=== PATIENT | male | born 2000 | race Caucasian/White ===

== ENCOUNTER 2021-02-11 22:51 | Emergency (ER) | payer SELFPAY ==
[2021-02-11 23:01] VITALS: BP 132/78; PULSE 77; RESP 16; TEMP 37.2; O2SAT 98; BMI 29.2
--- NOTE | 2021-02-11 23:50 | W.ED.SKABFB ---
HPI - Skin/Abscess/Foreign Bdy General: Chief complaint: Skin/Abscess/Foreign Body Stated complaint: LLQ ABD PAIN/SWELLING Time Seen by Provider: 02/11/21 23:45 History of Present Illness: HPI narrative: 20-year-old male comes in with concerns for a wound to the left abdominal area. Patient appears well. Patient appears no acute distress. Patient reports that the area is been there about 4 days but today he noticed that it seemed more swollen and he cut it with a knife and got some fluid out. Patient reports the swelling has improved but came in for evaluation taking it may be a hernia. Review of Systems General: Reports: 10 or more systems reviewed and unremarkable except in HPI and below Skin/Breast: Reports: changing lesions and other Physical Exam Const: COMMON NORMALS: no acute distress and patient oriented x3 GENERAL APPEARANCE: cooperative HENMT: COMMON NORMALS: normocephalic, TM's normal bilaterally and Normal external nose present HEAD & SCALP: normal to inspection and normocephalic NOSE: Normal external nose present TYMPANIC MEMBRANE: TM's normal bilaterally MOUTH: Normal oral and palatal mucosa present THROAT: posterior oropharynx normal Eye: GENERAL EYE: appearance normal, both eyes and all related structures Neck/C-Spine: COMMON NORMALS: full ROM Lymph: LYMPHATIC: no lymphadenopathy noted Chest: COMMONS NORMALS: normal inspection of the chest Resp: COMMON NORMALS: normal respiratory effort EFFORT & INSPECTION: Yes able to speak in complete sentences Cardio: COMMON NORMALS: regular rate and regular rhythm RATE: regular rate RHYTHM: regular rhythm GI: COMMON NORMALS: non-tender : COMMON NORMALS: Yes no CVA tenderness BLADDER/KIDNEY EXAM: Yes no CVA tenderness Back/Pelvis: COMMON NORMALS: no CVA tenderness and thoracic and lumbar spine normal to inspection Extremity: COMMON NORMALS: normal to inspection Neuro: COMMON NORMALS: patient oriented x3 and moves all extremities Psych: COMMON NORMALS: mental status grossly normal and cooperative Skin: NARRATIVE SKIN EXAM: Left lower abdominal wall crusted lesion with some mild ecchymosis and 4 cm of redness. Course Vital Signs: Vital signs: Vital Signs Temperature 99 F 02/11/21 23:01 Pulse Rate 77 02/11/21 23:01 Respiratory Rate 16 02/11/21 23:01 Blood Pressure 132/78 02/11/21 23:01 Pulse Oximetry 98 02/11/21 23:01 MDM - Skin/Abscess/Foreign Bdy MDM Narrative: Medical decision making narrative: Patient comes in for a wound to the left abdominal wall. On exam patient appears well. Patient appears no acute distress. Patient has an 4 cm area of redness with a centralized 1 cm crusted lesion with surrounding ecchymosis. Differential diagnosis includes infected insect bite, abscess, MRSA. Patient be started on doxycycline to cover for infected insect bite. Patient does come from [place] and this may be secondary to a tick bite so puts him at high risk for Lyme's and doxy will cover that. Doxycycline should also cover MRSA. I reviewed this with patient with recommendations for follow-up or return to the ER. Patient reported understanding. Discharge Plan Discharge Patient Disposition: Home Clinical Impression: Infected insect bite of abdomen Qualifiers: Encounter type: initial encounter Qualified Code(s): S30.861A - Insect bite (nonvenomous) of abdominal wall, initial encounter Condition: Stable Prescriptions: New doxycycline monohydrate 100 mg capsule 100 mg PO BID 10 Days Qty: 20 RF: 0 Discharge Orders: Discharge ED (Routine); Ordered 02/11/21 Ordered By: Satish Costa Discharge Diet: Usual diet Discharge Activity: Increase activity as tolerated Patient Instructions: Wound Infection (ED), Opioid Safety Activity Restrictions/Additional Instructions: Medication as directed. Drink plenty of fluids. Follow-up with primary care in 3 to 4 days. Return to the ER for new concerns. Stand Alone Forms: Work/School Release Coding Level of Care Code ED [employer] for [employer]
[2021-02-11] MEDS: doxycycline 100 mg Tablet PO (23:54)
[2021-02-11 23:59] VITALS: RESP 16
== END 2021-02-11 23:59 | disposition home or self-care (01) ==
PROVIDERS: Emergency Provider Nurse Practitioner Family
DX: S30.861A Insect bite (nonvenomous) of abdominal wall, initial encounter (principal); W57.XXXA Bitten or stung by nonvenomous insect and other nonvenomous arthropods, initial encounter
CPT/HCPCS: 99282